=== PATIENT | female | born 1960 | race Caucasian/White ===

== ENCOUNTER 2017-12-18 12:29 | Emergency (ER) | payer SELFPAY ==
[2017-12-18 12:43] VITALS: BP 141/91
--- NOTE | 2017-12-18 12:48 | UC ---
Eye Complaint HPI - HPI Summary HPI Summary: Pt presents with right eye swelling and crust that she first noticed this morning upon waking. She is very worried as she has a history of ankylosing spondylitis and has had eye issues in the past. Her sister also had similar symptoms many months ago and her eye developed cellulitis requiring "high does antibiotics". Pt wears glasses, but never contacts. Denies fever, chills, cough , SOB, chest pain, abdominal pain, n/v/d/c, decreased vision, or recent illness. - History of Current Complaint Chief Complaint: UCEye Stated Complaint: EYE IRRITATION Time Seen by Provider: 12/18/17 12:48 Hx Obtained From: Patient Onset/Duration: Sudden Onset Timing: Constant Severity Initially: Mild Severity Currently: Mild Pain Intensity: 3 Pain Scale Used: 0-10 Numeric Location of Injury: Eye Lid (upper) - Allergies/Home Medications Allergies/Adverse Reactions: Allergies Allergy/AdvReac Type Severity Reaction Status Date / Time tape Allergy Rash Uncoded 12/18/17 12:43 Home Medications: Home Medications Adalimumab (NF) [Humira Pen (NF)] 40 mg SUBCUT SEE INSTRUCTIONS 12/18/17 [ History Confirmed 12/18/17] PMH/Surg Hx/FS Hx/Imm Hx - Additional Past Medical History Additional PMH: ankylosing spondylitis - Surgical History Surgical History: None - Family History Known Family History: Positive: Unknown - Social History Occupation: Employed Full-time Lives: With Family Alcohol Use: Rare Substance Use Type: None Smoking Status (MU): Never Smoked Tobacco Review of Systems Constitutional: Negative Skin: Negative Eyes: Other - Eyelid swelling ENT: Negative Respiratory: Negative Cardiovascular: Negative Gastrointestinal: Negative Neurovascular: Negative Musculoskeletal: Negative Neurological: Negative Psychological: Negative All Other Systems Reviewed And Are Negative: Yes Physical Exam Triage Information Reviewed: Yes Appearance: Well-Appearing, No Pain Distress, Well-Nourished Vital Signs: Initial Vital Signs Temp 98.2 F 12/18/17 12:37 Pulse 68 12/18/17 12:37 Resp 16 12/18/17 12:37 BP 141/91 12/18/17 12:37 Pulse Ox 100 12/18/17 12:37 Vital Signs Reviewed: Yes Eyes: Positive: Conjunctiva Clear, Other: - Right upper eyelid mild edema. EOMI. PERRLA.. Negative: Conjunctiva Inflamed, Discharge ENT: Positive: Hearing grossly normal, Pharynx normal, TMs normal, Uvula midline. Negative: Pharyngeal erythema, Nasal congestion, Nasal drainage, TM bulging, TM dull, TM red, Tonsillar swelling, Tonsillar exudate, Hoarse voice, Sinus tenderness Neck: Positive: Supple, Nontender, No Lymphadenopathy Respiratory: Positive: Lungs clear, Normal breath sounds, No respiratory distress, No accessory muscle use Cardiovascular: Positive: RRR, No Murmur, Pulses Normal Neurological: Positive: Alert Psychological: Positive: Age Appropriate Behavior Skin: Negative: rashes Eye Complaint Course/Dx - Course Course Of Treatment: Suspect blepharitis. Pt is very worried about cellulitis. Given her medical hx, will rx for keflex and have her f/u with her eye doctor and/or PCP. - Differential Dx/Diagnosis Provider Diagnoses: Right eye blepharitis Discharge - Sign-Out/Discharge Documenting (check all that apply): Discharge - Discharge Plan Condition: Stable Disposition: HOME Prescriptions: Cephalexin CAP* [Keflex CAP*] 500 mg PO BID #14 cap Patient Education Materials: Blepharitis (ED) Referrals: No Primary Care Phys,NOPCP [Primary Care Provider] - Additional Instructions: If you develop a fever, shortness of breath, chest pain, new or worsening symptoms - please call your PCP or go to the ED. Your blood pressure was high at todays visit. Please see your primary provider within 4 weeks for recheck and re-evaluation. - Billing Disposition and Condition Condition: STABLE Disposition: HOME
== END 2017-12-18 12:59 | disposition home or self-care (01) ==
LOC: UCEAST 12:29
DX: H01.001 Unspecified blepharitis right upper eyelid (principal); M45.9 Ankylosing spondylitis of unspecified sites in spine; Z91.048 Other nonmedicinal substance allergy status
CPT/HCPCS: 99202; G0463